=== PATIENT | female | born 1955 | race Caucasian/White ===

== ENCOUNTER 2021-03-20 09:46 | Outpatient (CLI) | payer OTHER | END 2021-03-20 09:47 | disposition home or self-care (01) | LOC: CSHULT 09:46 | PROVIDERS: ATTEND Internal Medicine Gastroenterology | DX: R10.9 Unspecified abdominal pain (principal); K76.0 Fatty (change of) liver, not elsewhere classified | CPT/HCPCS: 76700 ==

== ENCOUNTER 2021-04-07 09:20 | Outpatient (CLI) | payer OTHER ==
[2021-04-07 17:36] LABS: SARS-CoV-2 PCR by NAA Not Detected (NotDetected)
== END 2021-04-07 09:21 | disposition home or self-care (01) ==
LOC: CSHLAB 09:20
PROVIDERS: ATTEND Internal Medicine Gastroenterology
DX: Z01.812 Encounter for preprocedural laboratory examination (principal); Z20.822 Contact with and (suspected) exposure to COVID-19; R10.9 Unspecified abdominal pain; Z12.11 Encounter for screening for malignant neoplasm of colon
CPT/HCPCS: U0003; U0005

== ENCOUNTER 2021-04-10 08:49 | Day surgery (SDC) | payer OTHER ==
[2021-04-08 14:57] VITALS: BMI 37.1
[2021-04-10] MEDS ORDERED: Lidocaine 1% MPF 2 ML VIAL ONE (09:22)
[2021-04-10] MEDS ORDERED: PROPOFOL 40 ML ONE ×2 (09:54→10:28)
[2021-04-10] MEDS ORDERED: Lidocaine 1% PF 5 ML VIAL ONE (09:54)
[2021-04-10] MEDS ORDERED: Glycopyrrolate 0.2 MG/ML 5 ML SYRINGE ONE (09:54)
[2021-04-10] MEDS ORDERED: PROPOFOL 20 ML ONE ×2 (10:55)
== END 2021-04-10 11:48 | disposition home or self-care (01) ==
LOC: CSHSDC 08:49
PROVIDERS: ATTEND Internal Medicine Gastroenterology
PROC: 0DB68ZZ Excision of Stomach, Via Natural or Artificial Opening Endoscopic (ICD-10-PCS; principal; 2021-04-10)
PROC: 0DJD8ZZ Inspection of Lower Intestinal Tract, Via Natural or Artificial Opening Endoscopic (ICD-10-PCS; principal; 2021-04-10)
DX: Z12.11 Encounter for screening for malignant neoplasm of colon (principal); K22.10 Ulcer of esophagus without bleeding; K22.2 Esophageal obstruction; K44.9 Diaphragmatic hernia without obstruction or gangrene; K31.7 Polyp of stomach and duodenum; K57.30 Diverticulosis of large intestine without perforation or abscess without bleeding; K64.9 Unspecified hemorrhoids; E03.9 Hypothyroidism, unspecified; E66.9 Obesity, unspecified
CPT/HCPCS: 88305; J2704